=== PATIENT | female | born 1985 | race Caucasian/White ===

== ENCOUNTER 2020-07-11 00:55 | Emergency (ER) | payer OTHER ==
--- NOTE | 2020-07-11 01:32 | EDM.PDOC ---
ED HPI GENERAL MEDICAL PROBLEM - General Chief Complaint: Chest Pain Stated Complaint: CHEST PAIN Time Seen by Provider: 07/11/20 01:05 Source of Information: Reports: Patient, Family () History Limitations: Reports: No Limitations - History of Present Illness INITIAL COMMENTS - FREE TEXT/NARRATIVE: Mrs. Rankin is a very pleasant 35-year-old woman who now presents the ED stating that she developed left-sided chest pain, that extends to the upper portion of her left upper arm, as well as to her left scapular area, 4 to 5 days ago. She states that it has come and gone. She notes that it is worse if she is supine and possibly worse if she takes a deep breath, otherwise, she has not identified any modifiers. No associated dyspnea, nausea, diaphoresis, or sense of im pending doom. The patient denies recent injury to her chest or arm. She has been applying ice packs and taking ibuprofen, which she states has not helped. No prior similar symptoms. Here in the ED, the patient is found to be hemodynamically stable, afebrile, saturating 96% on room air. She appears to be comfortable on the gurney, in no acute distress. The patient states that a recent MRI of her sinuses discovered sinusitis, therefore she has been on Augmentin. Prior to 4 to 5 days ago, however, the patient denies having a recent fever, chills, sore throat, ear pain, nasal or sinus congestion, cough, dyspnea, chest pain, palpitations, nausea, vomiting, constipation, diarrhea, abdominal pain, urinary symptoms, recent weight gain or weight loss, recent bloody bowel movements or black bowel movements, recent joint aches, headaches, or rashes. The patient and her are traveling from [place]. 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 Left Upper Chest Pain Score (Numeric/FACES): 5 Left Arm Pain Score (Numeric/FACES): 5 - Related Data Allergies Allergy/AdvReac Type Severity Reaction Status Date / Time shellfish derived Allergy Anaphylactic Verified 07/11/20 01:18 Shock Home Meds: Home Meds Albuterol [Ventolin HFA] 1 puff INH ONETIME PRN 07/11/20 [History] Amoxicillin/Clavulanate K [Augmentin 875-125 MG] 1 tab PO BID 07/11/20 [History] Cetirizine [ZyrTEC] 10 mg PO DAILY 07/11/20 [History] Famotidine [Pepcid] 10 mg PO DAILY 07/11/20 [History] Fluticasone Propionate [Flonase] 16 gm NS BID 07/11/20 [History] Nebulizer/Compressor [Pulmoneb Lt Compressor Nebul] 1 each MC BID 07/11/20 [History] Past Medical History HEENT History: Reports: Allergic Rhinitis Respiratory History: Reports: Asthma (PFT-proven) ENGINEER OPERATIONS AND MAINTENANCE History: Reports: Polycystic Ovaries Neurological History: Reports: Other (See Below) (Chiari malformation type I) Endocrine/Metabolic History: Reports: Obesity/BMI 30+ - Past Surgical History Female Surgical History: Reports: Section (x 3) Social & Family History - Tobacco Use Tobacco Use Status *Q: Never Tobacco User - Alcohol Use Alcohol Use History: Yes Alcohol Use Frequency: Rarely - Recreational Drug Use Recreational Drug Use: Yes Drug Use in Last 12 Months: Yes Recreational Drug Type: Reports: Marijuana/Hashish (edibles on occasion) - Living Situation & Occupation Living situation: Reports: , with Spouse, with Family (3 kids) Occupation: Employed (RN) ED ROS GENERAL - Review of Systems Review Of Systems: Comprehensive ROS is negative, except as noted in HPI. ED EXAM, GENERAL - Physical Exam Exam: See Below Exam Limited By: No Limitations General Appearance: Alert, WD/WN, No Apparent Distress Eye Exam: Bilateral Eye: EOMI, Normal Inspection Ears: Normal External Exam, Hearing Grossly Normal Nose: Normal Inspection Throat/Mouth: Normal Inspection, Normal Lips, Normal Voice, No Airway Compromise Head: Atraumatic, Normocephalic Neck: Normal Inspection, Full Range of Motion Respiratory/Chest: No Respiratory Distress, Lungs Clear, Normal Breath Sounds, No Accessory Muscle Use, Chest Non-Tender (including the painful areas on the left) Cardiovascular: Normal Peripheral Pulses, Regular Rate, Rhythm, No Gallop, No JVD, No Murmur, No Rub Peripheral Pulses: 3+: Radial (L), Radial (R) GI/Abdominal: Normal Bowel Sounds, Soft, Non-Tender, No Organomegaly, No D istention, No Abnormal Bruit, No Mass Back Exam: Normal Inspection, Full Range of Motion, Other (Nontender to painful area about the left scapula) Extremities: Normal Inspection, Normal Range of Motion, Normal Capillary Refill Neurological: Alert, Oriented, Normal Cognition, No Motor/Sensory Deficits Psychiatric: Normal Affect Skin Exam: Warm, Dry, Intact, Normal Color, No Rash #1 Interpretation EKG Date: 07/11/20 Time: 01:08 Rhythm: NSR Rate (Beats/Min): 79 Hickman: Normal P-Wave: Enlarged (LAE) QRS: Normal ST-T: Normal QT: Normal Comparison: NA - No Prior EKG Course - Vital Signs Last Recorded V/S: Last Vital Signs Temp 36.2 C 07/11/20 01:04 Pulse 81 07/11/20 01:04 Resp 18 07/11/20 01:04 BP 96/64 07/11/20 01:04 Pulse Ox 96 07/11/20 01:04 - Orders/Labs/Meds Orders: Active Orders 24 hr Category Date Time Status EKG Documentation Completion [RC] STAT Care 07/11/20 01:13 Active Chest 2V [CR] Stat Exams 07/11/20 01:29 Taken Labs: Laboratory Tests 07/11/20 07/11/20 07/11/20 Range/Units 01:43 01:43 01:43 WBC 10.27 H (3.98-10.04) K/mm3 RBC 4.72 (3.98-5.22) M/mm3 Hgb 12.3 (11.2-15.7) gm/dl Hct 39.6 (34.1-44.9) % MCV 83.9 (79.4-94.8) fl MCH 26.1 (25.6-32.2) pg MCHC 31.1 L (32.2-35.5) g/dl RDW Std Deviation 44.9 (36.4-46.3) fL Plt Count 264 (182-369) K/mm3 MPV 10.2 (9.4-12.3) fl Neutrophils % (Manual) 63 H (40-60) % Band Neutrophils % 0 (0-10) % Lymphocytes % (Manual) 25 (20-40) % Atypical Lymphs % 0 % Monocytes % (Manual) 8 (2-10) % Eosinophils % (Manual) 4 (0.7-5.8) % Basophils % (Manual) 0 L (0.1-1.2) Platelet Estimate Adequate RBC Morph Comment Normal D-Dimer, Quantitative 0.31 (0.19-0.50) mg/L Sodium 138 (136-145) mEq/L Potassium 4.2 (3.5-5.1) mEq/L Chloride 104 (98-107) mEq/L Carbon Dioxide 27 (21-32) mEq/L Anion Gap 11.2 (5-15) BUN 15 (7-18) mg/dL Creatinine 0.9 (0.55-1.02) mg/dL Est Cr Clr Drug Dosing 70.80 mL/min Estimated GFR (MDRD) > 60 (>60) mL/min BUN/Creatinine Ratio 16.7 (14-18) Glucose 114 H (70-99) mg/dL Calcium 8.9 (8.5-10.1) mg/dL Magnesium 2.0 (1.8-2.4) mg/dL Total Bilirubin 0.3 (0.2-1.0) mg/dL AST 15 (15-37) U/L ALT 29 (14-59) U/L Alkaline Phosphatase 61 (46-116) U/L Troponin I < 0.017 (0.00-0.056) ng/mL Total Protein 7.3 (6.4-8.2) g/dl Albumin 3.5 (3.4-5.0) g/dl Globulin 3.8 gm/dL Albumin/Globulin Ratio 0.9 L (1-2) - Re-Assessments/Exams Free Text/Narrative Re-Assessment/Exam: 07/11/20 01:30 As above, the patient has been experiencing 4 to 5 days of left-sided chest pain, it radiates to her upper left arm and left scapular area. No associated symptoms. An ECG, obtained at triage, shows no ischemic changes. Her physical exam is unremarkable. I have ordered a work-up that includes several blood tests and a chest x-ray. 07/11/20 02:02 Two-view chest radiograph appears to be grossly normal. The cardiac silhouette is within normal limits. No pulmonary vascular congestion. No pleural effusions. No focal infiltrate. No pneumothorax. Formal read per the Radiologist pending. 07/11/20 02:58 Test results discussed with the patient and her . Her CBC is remarkable for mild leukocytosis of 10.27, but with 0% bandemia, and the remainder of her CBC being unremarkable. Her CMP is remarkable for slight hyperglycemia of 114, with the remainder of her CMP being unremarkable. Her magnesium level is within normal limits at 2.0. Her troponin is undetectably low. Her D-dimer is within normal limits at 0.31. The patient's symptoms appear to be musculoskeletal in etiology. A cardiac etiology is highly unlikely, however, if the patient is still concerned about it, she can get an outpatient cardiac stress test. For today's purposes, I am recommending ibuprofen and time. The patient is in agreement. Departure - Departure Time of Disposition: 02:59 Disposition: Home, Self-Care 01 Condition: Good Clinical Impression: Musculoskeletal chest pain - Discharge Information *PRESCRIPTION DRUG MONITORING PROGRAM REVIEWED*: Not Applicable *COPY OF PRESCRIPTION DRUG MONITORING REPORT IN PATIENT DEBBIE: Not Applicable Referrals: PCP,Not In Area [Ordering Only Provider] - Forms: ED Department Discharge Additional Instructions: You were seen in the emergency room for 4 to 5 days of left-sided chest pain extending to your upper left arm, and left scapular area. Work-up in the ER included several blood tests, chest x-ray, and an ECG. Your entire work-up was unremarkable. You have not suffered a heart attack. You do not have a blood clot in your lungs. You are not anemic. There is no sign of an infection. No significant electrolyte abnormalities were found. Based on your history, physical exam, and ER tests, the cause of your pain is most likely musculoskeletal in etiology. We recommend that you take [id number] Tylenol or ibuprofen as needed for discomfort. Ibuprofen will probably work better and last longer. If you are concerned about underlying cardiac disease, we recommend that you follow-up with your PCP to arrange for an outpatient cardiac stress test. If any other problems, please do not hesitate to return to the ER. Sepsis Event Note (ED) - Evaluation Sepsis Screening Result: No Definite Risk - Focused Exam Vital Signs: Vital Signs Temp Pulse Resp BP Pulse Ox 07/11/20 01:04 36.2 C 81 18 96/64 96 - My Orders Last 24 Hours: My Active Orders 07/11/20 01:13 EKG Documentation Completion [RC] STAT 07/11/20 01:29 Chest 2V [CR] Stat - Assessment/Plan Last 24 Hours: My Active Orders 07/11/20 01:13 EKG Documentation Completion [RC] STAT 07/11/20 01:29 Chest 2V [CR] Stat
--- NOTE | 2020-07-11 07:14 | CR ---
Chest: PA and lateral views of the chest were obtained. Comparison: No prior chest imaging is available. Heart size and mediastinum are normal. Lungs are clear with no acute parenchymal change. Bony structures are within normal limits for the patient's age. Impression: 1. Nothing acute is seen on 2 view chest x-ray. Diagnostic code #1
== END 2020-07-11 03:03 | disposition home or self-care (01) ==
LOC: JD.ED 00:55
DX: R07.89 Other chest pain (principal); J45.909 Unspecified asthma, uncomplicated; E66.9 Obesity, unspecified; Z91.013 Allergy to seafood; Z68.30 Body mass index [BMI] 30.0-30.9, adult
CPT/HCPCS: 36415; 71046; 71046-26; 80053; 83735; 84484; 85007; 85027; 85379; 93005; 93010; 99283; 99285-25